=== PATIENT | female | born 1940 | race Two or more races ===

== ENCOUNTER → 2023-01-15 | Outpatient (OUT) | payer MEDICARE, OTHER, SELFPAY ==
[2023-01-15 12:54] LABS: Estimated Average Glucose 105 mg/dL; Glycohemoglobin A1C 5.3 % (4.5-6.2)
[2023-01-15 12:57] LABS: Alanine Aminotransferase 22 U/L (14-59); Albumin Globulin Ratio 1.2; Albumin Level 3.7 g/dL (3.4-5.0); Alkaline Phosphatase 77 U/L (46-116); Anion Gap 12.2; Aspartate Amino Transferase 13 U/L (15-37); BUN Creatinine Ratio 19.4; Bilirubin Total 0.5 mg/dL (0.2-1.0); Calcium 8.9 mg/dL (8.5-10.1); Chloride 106 mmol/L (98-107); Chol HDL Ratio 3.9; Cholesterol 186 mg/dL (<=200); Estimated GFR (African America >60 (>=60); Estimated GFR (Non-African Ame >60 (>=60); Globulin 3.1 g/dL; Glucose 88 mg/dL (74-106); HDL Cholesterol 48 mg/dL (40-60); Potassium 4.2 mmol/L (3.5-5.1); Sodium 143 mmol/L (136-145); Total Protein 6.8 g/dL (6.4-8.2); Triglycerides 95 mg/dL (<=150)
[2023-01-16 11:09] LABS: Insulin 6.8 uIU/mL (2.6-24.9)
== END ==
LOC: LAB 10:35
PROVIDERS: PCP Nurse Practitioner Family; Visit Provider Nurse Practitioner Family
DX: E07.9 Disorder of thyroid, unspecified (principal); R73.09 Other abnormal glucose; E78.5 Hyperlipidemia, unspecified; D64.9 Anemia, unspecified
CPT/HCPCS: 36415; 80053; 80061; 83036; 83525; 83540

== ENCOUNTER 2023-01-22 16:13 | Outpatient (OUT) | payer MEDICARE, OTHER, SELFPAY ==
--- NOTE | 2023-01-22 16:25 | XR_ITS ---
The [address] [address] Patient Name: FARHEEN MEZA MRN: [id number] date: 1940 Sex: F Assigned Patient Location: [facility] Current Patient Location: [facility] Accession/Order Number: [id number] Exam Date: 01/22/2023 16:25 Report Date: 01/22/2023 16:44 At the request of: RICARDO HERRMANN Procedure: XR hand RT min 3V EXAM: XR hand RT min 3V HISTORY: Pain in the hand since an injury COMPARISON: None. TECHNIQUE: 3 views of the right hand were obtained. FINDINGS: There is no evidence of an acute fracture or dislocation. There is mild narrowing of the joint spaces at the distal scaphoid bone and moderate narrowing at the first carpometacarpal joint. Subchondral cysts are seen scattered throughout the wrist. There is mild narrowing of the interphalangeal joints throughout the hand, accompanied by osteophytes. There is no evidence of an abnormal soft tissue calcification or radiopaque foreign body. IMPRESSION: Degenerative changes are seen throughout the hand. There is no evidence of an acute fracture or dislocation. No radiopaque foreign body is identified. Electronically authenticated by: LIOR COLLINS Date: 01/22/2023 16:44
== END 2023-01-22 16:14 ==
PROVIDERS: PCP Nurse Practitioner Family; Visit Provider Nurse Practitioner Family
DX: M79.641 Pain in right hand (principal)
CPT/HCPCS: 73130

== ENCOUNTER 2023-03-08 09:12 | Outpatient (OUT) | payer MEDICARE, OTHER, SELFPAY ==
[2023-03-08 10:34] LABS: Free T3 2.37 pg/mL (2.18-3.98); Thyroid Stimulating Hormone 10.951 uIU/mL (0.358-3.740)
== END 2023-03-08 09:13 | disposition home or self-care (01) ==
LOC: LAB 09:14
PROVIDERS: PCP Nurse Practitioner Family; Visit Provider Nurse Practitioner Family
DX: E07.9 Disorder of thyroid, unspecified (principal)
CPT/HCPCS: 36415; 84436; 84443; 84481

== ENCOUNTER 2025-04-20 08:10 | Outpatient (OUT) | payer MEDICARE, SELFPAY ==
--- NOTE | 2025-04-20 08:34 | XR_ITS ---
The [address] [address] Patient Name: FARHEEN MEZA MRN: [id number] date: 1940 Sex: F Assigned Patient Location: LAB Current Patient Location: LAB Accession/Order Number: [id number] Exam Date: 04/20/2025 08:40 Report Date: 04/20/2025 12:54 At the request of: RICARDO HERRMANN Procedure: XR thoracic spine 2V CLINICAL DATA: Right-sided thoracic and lumbar back pain. Pain at the right shoulder. No injury. CERVICAL SPINE - 3 views COMPARISON: None AP, lateral and odontoid views were obtained. There is osteopenia. C7 and the cervicothoracic junction are not well seen on the lateral view. There are no acute fractures in the field of view. There is slight disc space narrowing at C4-5 and mild to moderate at C5-6. There are tiny endplate spurs. Bilateral facet hypertrophy is seen. The atlantoaxial relationship is maintained. No prevertebral soft tissue swelling is noted. XR/XR thoracic spine 2V IMPRESSION: SLIGHT LIMITED STUDY CERVICOTHORACIC JUNCTION. OSTEOPENIA AND DEGENERATIVE CHANGES. THORACIC SPINE - 2 views COMPARISON: None AP and lateral views were obtained. There is osteopenia. There is mild thoracolumbar levoscoliotic curvature. There is subtle wedge deformity involving a couple of the mid thoracic vertebral bodies which appears chronic. No suspected acute compression fractures or displacement are seen. The pedicles are intact. There is mild endplate spurring. No paraspinal soft tissue abnormalities are seen. IMPRESSION: OSTEOPENIA AND DEGENERATIVE CHANGES. NO ACUTE BONY FINDINGS. LUMBAR SPINE - 2 views COMPARISON: None AP and lateral views were obtained. There is osteopenia. Levoscoliotic curvature is seen. No acute compression fractures or displacement are identified. There is slight disc space narrowing L1-2, L2-3 and the lumbosacral junction. There is minimal endplate spurring. Lower lumbar facet hypertrophy is seen. The SI joints are intact and show minor sclerosis. There is mild atherosclerotic plaque at the aorta. IMPRESSION: OSTEOPENIA, SCOLIOSIS AND MILD DEGENERATIVE CHANGES. NO ACUTE PLAIN FILM FINDINGS. Impression dictated by: Rachelle Soto M.D. 04/20/2025 12:54 PM Dictation Location: [id number] Electronically authenticated by: [id number] Y Date: 04/20/2025 12:54
--- NOTE | 2025-04-20 08:34 | XR_ITS ---
The [address] [address] Patient Name: FARHEEN MEZA MRN: [id number] date: 1940 Sex: F Assigned Patient Location: LAB Current Patient Location: LAB Accession/Order Number: [id number] Exam Date: 04/20/2025 08:40 Report Date: 04/20/2025 12:54 At the request of: RICARDO HERRMANN Procedure: XR thoracic spine 2V CLINICAL DATA: Right-sided thoracic and lumbar back pain. Pain at the right shoulder. No injury. CERVICAL SPINE - 3 views COMPARISON: None AP, lateral and odontoid views were obtained. There is osteopenia. C7 and the cervicothoracic junction are not well seen on the lateral view. There are no acute fractures in the field of view. There is slight disc space narrowing at C4-5 and mild to moderate at C5-6. There are tiny endplate spurs. Bilateral facet hypertrophy is seen. The atlantoaxial relationship is maintained. No prevertebral soft tissue swelling is noted. XR/XR cervical spine 2-3V IMPRESSION: SLIGHT LIMITED STUDY CERVICOTHORACIC JUNCTION. OSTEOPENIA AND DEGENERATIVE CHANGES. THORACIC SPINE - 2 views COMPARISON: None AP and lateral views were obtained. There is osteopenia. There is mild thoracolumbar levoscoliotic curvature. There is subtle wedge deformity involving a couple of the mid thoracic vertebral bodies which appears chronic. No suspected acute compression fractures or displacement are seen. The pedicles are intact. There is mild endplate spurring. No paraspinal soft tissue abnormalities are seen. IMPRESSION: OSTEOPENIA AND DEGENERATIVE CHANGES. NO ACUTE BONY FINDINGS. LUMBAR SPINE - 2 views COMPARISON: None AP and lateral views were obtained. There is osteopenia. Levoscoliotic curvature is seen. No acute compression fractures or displacement are identified. There is slight disc space narrowing L1-2, L2-3 and the lumbosacral junction. There is minimal endplate spurring. Lower lumbar facet hypertrophy is seen. The SI joints are intact and show minor sclerosis. There is mild atherosclerotic plaque at the aorta. IMPRESSION: OSTEOPENIA, SCOLIOSIS AND MILD DEGENERATIVE CHANGES. NO ACUTE PLAIN FILM FINDINGS. Impression dictated by: Rachelle Soto M.D. 04/20/2025 12:54 PM Dictation Location: [place] [address] Electronically authenticated by: [id number] Y Date: 04/20/2025 12:54
--- NOTE | 2025-04-20 08:34 | XR_ITS ---
The [address] [address] Patient Name: FARHEEN MEZA MRN: [id number] date: 1940 Sex: F Assigned Patient Location: LAB Current Patient Location: LAB Accession/Order Number: [id number] Exam Date: 04/20/2025 08:40 Report Date: 04/20/2025 12:54 At the request of: RICARDO HERRMANN Procedure: XR thoracic spine 2V CLINICAL DATA: Right-sided thoracic and lumbar back pain. Pain at the right shoulder. No injury. CERVICAL SPINE - 3 views COMPARISON: None AP, lateral and odontoid views were obtained. There is osteopenia. C7 and the cervicothoracic junction are not well seen on the lateral view. There are no acute fractures in the field of view. There is slight disc space narrowing at C4-5 and mild to moderate at C5-6. There are tiny endplate spurs. Bilateral facet hypertrophy is seen. The atlantoaxial relationship is maintained. No prevertebral soft tissue swelling is noted. XR/XR lumbar spine 2-3V IMPRESSION: SLIGHT LIMITED STUDY CERVICOTHORACIC JUNCTION. OSTEOPENIA AND DEGENERATIVE CHANGES. THORACIC SPINE - 2 views COMPARISON: None AP and lateral views were obtained. There is osteopenia. There is mild thoracolumbar levoscoliotic curvature. There is subtle wedge deformity involving a couple of the mid thoracic vertebral bodies which appears chronic. No suspected acute compression fractures or displacement are seen. The pedicles are intact. There is mild endplate spurring. No paraspinal soft tissue abnormalities are seen. IMPRESSION: OSTEOPENIA AND DEGENERATIVE CHANGES. NO ACUTE BONY FINDINGS. LUMBAR SPINE - 2 views COMPARISON: None AP and lateral views were obtained. There is osteopenia. Levoscoliotic curvature is seen. No acute compression fractures or displacement are identified. There is slight disc space narrowing L1-2, L2-3 and the lumbosacral junction. There is minimal endplate spurring. Lower lumbar facet hypertrophy is seen. The SI joints are intact and show minor sclerosis. There is mild atherosclerotic plaque at the aorta. IMPRESSION: OSTEOPENIA, SCOLIOSIS AND MILD DEGENERATIVE CHANGES. NO ACUTE PLAIN FILM FINDINGS. Impression dictated by: Rachelle Soto M.D. 04/20/2025 12:54 PM Dictation Location: [place] [address] Electronically authenticated by: [id number] Y Date: 04/20/2025 12:54
[2025-04-20 08:56] LABS: Hematocrit 48.8 % (36.0-48.0); Hemoglobin 16.1 g/dL (12.0-16.0); Immature Granulocytes Abs Auto 0.01 10^3/uL (0.00-0.03); Immature Granulocytes Pct Auto 0.2 % (0.0-0.5); Lymphocytes Absolute Auto 1.8 10^3/uL (1.2-3.8); Mean Corpuscular HGB Conc 33.0 g/dL (29.9-35.2); Mean Corpuscular Hemoglobin 29.7 pg (26.7-34.0); Mean Corpuscular Volume 90.0 fL (81.0-99.0); Platelet Count 241 10^3/uL (150-450); Red Blood Count 5.42 10^6/uL (4.20-5.40); White Blood Count 4.6 10^3/uL (4.0-11.0)
[2025-04-20 10:33] LABS: Iron 92.0 ug/dL (50.0-170.0)
[2025-04-20 11:33] LABS: Alanine Aminotransferase 27 U/L (14-59); Albumin Globulin Ratio 1.5; Albumin Level 4.1 g/dL (3.4-5.0); Alkaline Phosphatase 82 U/L (46-116); Anion Gap 10.6; Aspartate Amino Transferase 20 U/L (15-37); Blood Urea Nitrogen 13.0 mg/dL (7.0-18.0); Calcium 9.2 mg/dL (8.5-10.1); Carbon Dioxide 31.1 mmol/L (21.0-32.0); Chloride 106 mmol/L (98-107); Cholesterol 179 mg/dL (<=200); Estimated GFR (African America >60 (>=60 mL/min/1.73m^2); Estimated GFR (Non-African Ame >60 (>=60 mL/min/1.73m^2); Free T3 2.42 pg/mL (2.18-3.98); Globulin 2.8 g/dL; Glucose 99 mg/dL (74-106); HDL Cholesterol 49 mg/dL (40-60); Potassium 4.7 mmol/L (3.5-5.1); Sodium 143 mmol/L (136-145); Thyroid Stimulating Hormone 31.553 uIU/mL (0.358-3.740); Total Protein 6.9 g/dL (6.4-8.2); Triglycerides 96 mg/dL (<=150); VLDL CHOLESTEROL 19.2 mg/dL
== END 2025-04-20 08:11 | disposition home or self-care (01) ==
LOC: LAB 08:13
PROVIDERS: PCP Nurse Practitioner Family; Visit Provider Nurse Practitioner Family
DX: Z00.00 Encounter for general adult medical examination without abnormal findings (principal); E03.9 Hypothyroidism, unspecified; M54.9 Dorsalgia, unspecified; R73.09 Other abnormal glucose; R53.83 Other fatigue; M85.88 Other specified disorders of bone density and structure, other site; M51.369 Other intervertebral disc degeneration, lumbar region without mention of lumbar back pain or lower extremity pain; M51.34 Other intervertebral disc degeneration, thoracic region; M50.30 Other cervical disc degeneration, unspecified cervical region
CPT/HCPCS: 36415; 72040; 72070; 72100; 80053; 80061; 82306; 83036; 83525; 83540; 84436; 84443; 84481; 85025

== ENCOUNTER 2025-04-30 12:31 | Outpatient (RCR) | payer MEDICARE, SELFPAY | END 2025-06-02 08:34 | disposition home or self-care (01) | LOC: PT 12:31 | PROVIDERS: PCP Nurse Practitioner Family; Visit Provider Nurse Practitioner Family | DX: M89.8X1 Other specified disorders of bone, shoulder (principal) | CPT/HCPCS: 97035; 97110; 97140; 97161 ==